=== PATIENT | female | born 1960 | race Asian ===

== ENCOUNTER 2022-09-29 04:03 | Emergency (ER) | payer OTHER ==
--- NOTE | 2022-09-29 04:05 | ED Physician Documentation ---
PD HPI CHEST PAIN - Stated complaint Stated Complaint: JAW/CHEST PX - History obtained from History obtained from: Patient - Additional information Additional information: HPI from patient. Patient c/o chest tightness across anterior chest, radiating to right jaw. 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 She has not noted any exacerbating nor ameliorating factors. Denies h/o similar symptoms. Patient recently established with local PMD with whom she met last week. Elevated blood pressures were noted and she was advised to record BPs until scheduled follow-up with PMD next week. Patient has no known cardiac pathology. Has never had stress test. Review of Systems Constitutional: reports: Reviewed and negative Cardiac: reports: Chest pain / pressure. denies: Palpitations, Pedal edema, Calf pain Respiratory: reports: Reviewed and negative GI: reports: Reviewed and negative Musculoskeletal: denies: Extremity swelling PD PAST MEDICAL HISTORY - Past Medical History Past Medical History: No - Present Medications Home Medications: Ambulatory Orders Medication Instructions Recorded Confirmed lisinopriL [Lisinopril] 10 mg PO DAILY #14 tablet 09/29/22 - Allergies Allergies/Adverse Reactions: Allergies Allergy/AdvReac Type Severity Reaction Status Date / Time No Known Drug Allergies Allergy Verified 09/29/22 04:12 PD ED PE NORMAL - Vitals Vital signs reviewed: Yes - General General: Alert and oriented X 3, No acute distress, Well developed/nourished - Neck Neck: Supple, no meningeal sign - Cardiac Cardiac: RRR, No murmur, No gallop, No rub - Respiratory Respiratory: No respiratory distress, Clear bilaterally - Abdomen Abdomen: Soft, Non tender - Extremities Extremities: No edema Results - Vitals Vitals: Vital Signs - 24 hr 09/29/22 09/29/22 09/29/22 04:09 04:12 06:17 Temperature 36.6 C Heart Rate 92 91 80 Respiratory 18 18 Rate Blood Pressure 176/102 H 169/85 H O2 Saturation 98 96 Oxygen O2 Source Room air - EKG (time done) No standard instances EKG releavant findings:: EKG personally interpreted by author of this note. Relevant findings are: Rate: Rate (enter#) (87) Rhythm: NSR [place]: Normal Intervals: Normal [place] QRS: Normal Ischemia: Normal ST segments - Labs Labs: Laboratory Tests 0709/29/22 09/29/22 04:18 04:18 04:18 WBC 7.1 RBC 5.64 H Hgb 16.2 H Hct 49.8 H MCV 88.3 MCH 28.7 MCHC 32.5 RDW 13.1 Plt Count 288 MPV 10.0 Neut # (Auto) 4.5 Lymph # (Auto) 1.9 [place] # (Auto) 0.5 Eos # (Auto) 0.1 Baso # (Auto) 0.1 Absolute Nucleated RBC 0.00 Nucleated RBC % 0.0 Sodium 143 Potassium 3.7 Chloride 106 Carbon Dioxide 28 Anion Gap 9.0 BUN 9 Creatinine 0.6 Estimated GFR (MDRD) 102 Glucose 119 H Calcium 10.1 Total Bilirubin 0.8 AST 20 ALT 30 Alkaline Phosphatase 116 Troponin I High Sens < 2.3 L Total Protein 7.9 Albumin 4.5 Globulin 3.4 Albumin/Globulin Ratio 1.3 Lipase 38 - Rads (name of study) chest xray Relevant Findings:: Prelim report reviewed, EMP independent interpretation of test (I reviewed these images and my interpretation is no acute cardiopulmonary disease), See rad report PD Medical Decision Making - ED course Complexity details: reviewed results, re-evaluated patient, considered differential, d/w patient ED course: No concerning nor diagnostic findings on tonight's tests, including blood tests (mildly elevated h/h above normal range), EKG, and CXR. Etiology of patient's symptoms is not apparent at this time. Results d/w patient, return precautions discussed. She has follow up appointment arranged for next week with PMD. She expresses concern regarding persistently elevated blood pressures. BP readings in ED ranged from 160s-170s (systolic) over 80s-100s (diastolic). Patient says she has been measuring her blood pressures 1-2 times per day for at least the past 10 days, and she reports readings average in the 170s range systolic and has not noted any normal nor low readings (I discussed high/normal/low ranges with patient). She expresses interest in starting antihypertensive medication tonight. I explained to her that I would be comfortable with this, given her reported readings on BP cuff at home for over a week but that another option would be to continue to record these readings and wait until she sees PMD next week; she would prefer to start antihypertensive at this time. She is given 10mg lisinopril in ED and rx for same is provided. I instructed her to continue recording BP readings and to follow up with PMD as scheduled. Departure - Departure Disposition: 01 Home, Self Care Clinical Impression: Atypical chest pain Condition: Good Instructions: ED Chest Pain Atypical Unkn Cause, ED Hypertension New Begin Tx Prescriptions: lisinopriL [Lisinopril] 10 mg PO DAILY #14 tablet Comments: There were no concerning or diagnostic findings on tonight's test, including the blood test, EKG, and chest x-ray. The cause of your symptoms is not apparent at this time. As we discussed, your red blood cell levels (hemoglobin and hematocrit) were mildly elevated above the normal range. This is very likely an incidental finding, but you should mention it to your primary care provider when you follow-up; at their discretion, they might recommend having this test repeated in the coming weeks to see if the red blood cell level has normalized. I am starting you on a blood pressure medication (lisinopril). You are given the first dose in the emergency department and I electronically submitted a prescription to the [facility] pharmacy in [place]. I will be prescribing a 2-week supply. This should give plenty of time to follow-up with your primary care provider; they can provide a longer course of this medication if it seems to be working for your high blood pressure without adverse effect. Discharge Date/Time: 09/29/22 06:17
[2022-09-29 04:26] LABS: BASOPHILS # (AUTO) 0.1 10^3/uL (0.0-0.1); BASOPHILS % (AUTO) 1.1 %; EOSINOPHILS # (AUTO) 0.1 10^3/uL (0.0-0.7); EOSINOPHILS % (AUTO) 1.3 %; HCT - HEMATOCRIT 49.8 % (37.0-47.0); HGB - HEMOGLOBIN 16.2 g/dL (12.0-16.0); LYMPHOCYTES # (AUTO) 1.9 10^3/uL (1.5-3.5); LYMPHOCYTES % (AUTO) 26.5 %; MEAN CORPUSCULAR HEMOGLOBIN 28.7 pg (27.0-31.0); MEAN CORPUSCULAR HGB CONC 32.5 g/dL (32.0-36.0); MEAN CORPUSCULAR VOLUME 88.3 fL (81.0-99.0); MONOCYTES # (AUTO) 0.5 10^3/uL (0.0-1.0); MONOCYTES % (AUTO) 7.1 %; NEUTROPHILS # (AUTO) 4.5 10^3/uL (1.5-6.6); NEUTROPHILS % (AUTO) 63.9 %; PLT - PLATELET COUNT 288 10^3/uL (130-450); RED BLOOD COUNT 5.64 10^6/uL (4.20-5.40); RED CELL DISTRIBUTION WIDTH 13.1 % (12.0-15.0); WHITE BLOOD COUNT 7.1 x10^3/uL (4.8-10.8)
[2022-09-29 04:41] LABS: ALBUMIN 4.5 g/dL (3.2-5.5); ALBUMIN/GLOBULIN RATIO 1.3 (1.0-2.2); BILIRUBIN,TOTAL 0.8 mg/dL (0.2-1.0); CALCIUM 10.1 mg/dL (8.5-10.3); CREATININE 0.6 mg/dL (0.4-1.0); POTASSIUM 3.7 mmol/L (3.5-5.0); TOTAL PROTEIN 7.9 g/dL (6.7-8.2)
[2022-09-29] MEDS: lisinopriL 5 MG TABLET PO STA (06:12)
[2022-09-29 06:20] VITALS: BP 169/85
--- NOTE | 2022-09-29 08:24 | XRAY Report ---
PROCEDURE: Chest 2 View X-Ray INDICATIONS: chest pain TECHNIQUE: 2 views of the chest were acquired. COMPARISON: None. FINDINGS: Surgical changes and devices: None. Lungs and pleura: No pleural effusions or pneumothorax. Lungs are clear. Mediastinum: Mediastinal contours appear normal. Heart size is normal. Bones and chest wall: No suspicious bony lesions. Overlying soft tissues appear unremarkable. IMPRESSION: No acute cardiopulmonary abnormality. This report is concordant with the overnight preliminary interpretation. Reviewed by: Librado Aldana MD on 09/29/2022 8:22 AM PDT Approved by: Librado Adlana MD on 09/29/2022 8:22 AM PDT Station ID: [id number]
== END 2022-09-29 06:17 | disposition home or self-care (01) ==
LOC: ED 04:03
DX: R07.89 Other chest pain (principal)
CPT/HCPCS: 36415; 71046; 80053; 83690; 84484; 85025; 93005; 99284; A9270

== ENCOUNTER 2022-11-03 15:17 | Outpatient (CLI) | payer OTHER | END 2022-11-03 23:59 | disposition short-term general hospital (02) | LOC: EMS 15:17 | DX: T40.2X2A Poisoning by other opioids, intentional self-harm, initial encounter (principal); T51.0X2A Toxic effect of ethanol, intentional self-harm, initial encounter; I46.8 Cardiac arrest due to other underlying condition | CPT/HCPCS: A0425; A0427 ==